=== PATIENT | male | born 1975 | race Hispanic/Latino ===

== ENCOUNTER 2018-02-21 15:38 | Emergency (ER) | payer OTHER ==
[~2018-02-21] VITALS: Ht 177.8 cm; Wt 104.8 kg
[2018-02-21] MEDS ORDERED: AMOXICILLIN/CLAVULANATE K 875 MG TAB PO STA (16:15)
[2018-02-21] MEDS ORDERED: TETANUS/DIPHTHERIA TOX ADULT 0.5 ML SYR IM ONE (16:15)
--- NOTE | 2018-02-21 17:00 | NUR ---
ERP at the bedside to place 2 reno in the wound for approximation, but allowing it to drain as necessary.
[2018-02-21] MEDS ORDERED: HYDROCODONE/APAP 5MG-325MG TAB PO ONE (17:15)
--- NOTE | 2018-02-21 17:38 | NUR ---
Pt to X-Ray for humeral radiographs
--- NOTE | 2018-02-21 18:05 | Diagnostic Imaging Report ---
Exam: Right humerus 2 views. Comparison: None. Findings: No evidence of fracture, malalignment, or soft tissue abnormality. Impression: No acute osseous abnormality Signed by: Dr. Luis Alberto Morales MD on 02/21/2018 6:02 PM
--- NOTE | 2018-02-21 18:50 | NUR ---
Pt is awaiting X-Ray results. Meds given as ordered. MD aware, Amoxicillin is not in the med room. states pt is ok to go and get his prescription filled and cancel the dose in the ER, if not able to locate.
== END 2018-02-21 20:05 | disposition home or self-care (01) ==
LOC: FSED 15:38
DX: S41.151A Open bite of right upper arm, initial encounter (principal); W54.0XXA Bitten by dog, initial encounter
CPT/HCPCS: 90714; 99283

== ENCOUNTER 2018-02-27 16:51 | Emergency (ER) | payer OTHER ==
--- OUTSIDE RECORDS SUMMARY | 2018-02-27 16:52 | XMS REPORT ---
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 Allergies, Adverse Reactions, Alerts This patient has no known allergies or adverse reactions. Medications This patient has no known medications. Results Test Description Test Time Test Comments Text Results Atomic Results Result Comments [facility] 2VIEW RT -HOPD 2018-02-21 18:01:00 [place] [id number] Patient Name: JEANETTE SIDDIQUI MR #: [id number] : 1975 Age/Sex: 42/M Req #: [id number] Adm Physician: Ordered by: DEANA HAYWOOD MD Report #: [id number] Location: [facility] Room/Bed: Procedure: [id number] HOPD/HUMERUS 2VIEW RT -HOPD Exam Date: 02/21/18 Exam Time: 1748 REPORT STATUS: Signed Exam: Right humerus 2 views. Comparison: None. Findings: No evidence of fracture, malalignment, or soft tissue abnormality. Impression: No acute osseous abnormality Signed by: Dr. Delfino Mary MD on 02/21/2018 6:02 PM Dictated By: DELFINO MARY MD 01 Transcribed By: FRANCY on 02/21/181801 COPY TO: DEANA HAYWOOD MD
--- NOTE | 2018-02-27 17:20 | NUR ---
DR WOODS TO SEE PT PRIOR TO TRIAGE, GLORIA ARE NOT READY TO BE REMOVED, PT TOLD TO RETURN IN 6 DAYS. HEELING WOUNDS NO SIGNS OR SYMTOMS OF INFECTION
== END 2018-02-27 17:22 | disposition left against medical advice (07) ==
LOC: FSED 16:51
DX: Z48.00 Encounter for change or removal of nonsurgical wound dressing (principal)

== ENCOUNTER 2018-03-03 18:21 | Emergency (ER) | payer OTHER ==
[~2018-03-03] VITALS: Ht 177.8 cm; Wt 104.8 kg
== END 2018-03-03 18:48 | disposition home or self-care (01) ==
LOC: FSED 18:21
DX: Z48.02 Encounter for removal of sutures (principal)

== ENCOUNTER → 2020-05-14 | Day surgery (SDC) | payer OTHER ==
[2020-05-09 08:52] LABS: BASOPHILS % 0.7 % (0.0-1.0); EOSINOPHILS # (AUTO) 0.2 (0.0-0.4); EOSINOPHILS % 2.9 % (0.0-6.0); HEMOGLOBIN 14.9 g/dL (14.0-18.0); LYMPHOCYTES % 32.9 % (18.0-39.1); MEAN CORPUSCULAR HEMOGLOBIN 29.4 pg (28-32); MEAN CORPUSCULAR HGB CONC 34.7 g/dL (31-35); MEAN CORPUSCULAR VOLUME 84.8 fL (81-99); MONOCYTES # (AUTO) 0.5 (0.2-0.8); MONOCYTES % 7.8 % (4.4-11.3); NEUTROPHILS # (AUTO) 3.3 (2.1-6.9); NEUTROPHILS % 55.5 % (38.7-80.0); PLATELET COUNT 299 x10e3/uL (140-360); RED BLOOD COUNT 5.07 x10e6/uL (4.3-5.7); RED CELL DISTRIBUTION WIDTH 12.3 % (11.7-14.4)
[2020-05-09 09:17] LABS: ALANINE AMINOTRANSFERASE 70 IU/L (0-55); ALBUMIN 4.2 g/dL (3.5-5.0); ALBUMIN/GLOBULIN RATIO 1.1 (0.8-2.0); ALKALINE PHOSPHATASE 51 IU/L (40-150); ANION GAP 14.4 mmol/L (8-16); BLOOD UREA NITROGEN 21 mg/dL (7-26); BUN/CREATININE RATIO 20 (6-25); CALCIUM 9.2 mg/dL (8.4-10.2); CARBON DIOXIDE 26 mmol/L (22-29); CHLORIDE 107 mmol/L (98-107); CREATININE, SERUM 1.07 mg/dL (0.72-1.25); EST GLOMERULAR FILTRATION RATE > 60 ML/MIN (60-); GLUCOSE 106 mg/dL (74-118); POTASSIUM 4.4 mmol/L (3.5-5.1); SODIUM 143 mmol/L (136-145)
[~2020-05-14] MED LIST: ACETAMINOPHEN 1000 MG/100 ML 100 ML IV ONE; ATENOLOL50 MG PO; BUPIVACAINE 0.25% 30ML SDV ONE; DEXAMETHASONE SOD PHOS INJ 4 MG/ML VIAL ONE; FENTANYL CITRATE/PF 100MCG/2 ML INJ ONE; GLYCOPYRROLATE INJ 0.2 MG/ML VIAL ONE; HYDROCODONE/APAP 7.5MG-325MG 1 EA TAB ONE; KETOROLAC TROMETHAMINE 30 MG/ML VIAL ONE; LIDOCAINE HCL 2% LOCAL INJ 5 ML SDV VIAL INJ ONE; NEOSTIGMINE 1 MG/ML 10ML VIAL ONE; ONDANSETRON HCL 4 MG ORAL DISINTEGRATING TAB ONE; ONDANSETRON HCL INJ 2MG/ML 2ML 2 MG/ML VIAL ONE; PANTOPRAZOLE SO20 MG PO; PROPOFOL IV EMULSION 10 MG/ML 20 ML VIAL ONE; ROCURONIUM BROMIDE 10 MG/ML 5ML VIAL IV ONE; SEVOFLURANE INHAL SOLN 250 ML PEN BTL ONE
[2020-05-14 12:25] VITALS: BP 139/80
== END | disposition home or self-care (01) ==
LOC: OR 05:59
PROVIDERS: ATTEND Surgery
DX: K80.10 Calculus of gallbladder with chronic cholecystitis without obstruction (principal); K42.9 Umbilical hernia without obstruction or gangrene; K82.8 Other specified diseases of gallbladder; I10 Essential (primary) hypertension; R00.1 Bradycardia, unspecified; K21.9 Gastro-esophageal reflux disease without esophagitis; N20.0 Calculus of kidney; R06.83 Snoring; Z01.810 Encounter for preprocedural cardiovascular examination; Z01.812 Encounter for preprocedural laboratory examination; Z20.822 Contact with and (suspected) exposure to COVID-19
CPT/HCPCS: 36415; 47562; 80053; 85025; 88304; 93005; C1766; J0131; J1100; J1885; J2001; J2405; J2704; J2710; J3010; Q0162; U0002

== ENCOUNTER 2020-06-28 03:00 | Emergency (ER) | payer OTHER ==
[~2020-06-28] VITALS: Ht 177.8 cm; Wt 107.0 kg
[~2020-06-28 03:00] MED LIST changes: -ACETAMINOPHEN 1000 MG/100 ML 100 ML IV ONE; -BUPIVACAINE 0.25% 30ML SDV ONE; -DEXAMETHASONE SOD PHOS INJ 4 MG/ML VIAL ONE; -FENTANYL CITRATE/PF 100MCG/2 ML INJ ONE; -GLYCOPYRROLATE INJ 0.2 MG/ML VIAL ONE; -HYDROCODONE/APAP 7.5MG-325MG 1 EA TAB ONE; -KETOROLAC TROMETHAMINE 30 MG/ML VIAL ONE; -LIDOCAINE HCL 2% LOCAL INJ 5 ML SDV VIAL INJ ONE; -NEOSTIGMINE 1 MG/ML 10ML VIAL ONE; -ONDANSETRON HCL 4 MG ORAL DISINTEGRATING TAB ONE; -ONDANSETRON HCL INJ 2MG/ML 2ML 2 MG/ML VIAL ONE; -PROPOFOL IV EMULSION 10 MG/ML 20 ML VIAL ONE; -ROCURONIUM BROMIDE 10 MG/ML 5ML VIAL IV ONE; -SEVOFLURANE INHAL SOLN 250 ML PEN BTL ONE
[2020-06-28] MEDS ORDERED: KETOROLAC TROMETHAMINE 30 MG/ML VIAL IV STA (03:16)
[2020-06-28] MEDS ORDERED: ONDANSETRON HCL INJ 2MG/ML 2ML 2 MG/ML VIAL IV STA (03:16)
[2020-06-28] MEDS ORDERED: ONDANSETRON HCL INJ 2MG/ML 2ML 2 MG/ML VIAL ONE (03:30)
[2020-06-28] MEDS ORDERED: MORPHINE SULFATE 5 MG/ML VIAL IV ONE (03:30)
[2020-06-28] MEDS ORDERED: MORPHINE SULFATE INJ 4 MG/ML INJ 1ML ONE (03:30)
[2020-06-28] MEDS ORDERED: KETOROLAC TROMETHAMINE 30 MG/ML VIAL ONE (03:30)
[2020-06-28] MEDS ORDERED: SODIUM CHLORIDE 0.9% 1000ML 1,000 ML ONE (03:31)
[2020-06-28 04:44] VITALS: BP 153/91
== END 2020-06-28 04:44 | disposition home or self-care (01) ==
LOC: FSED 03:18
DX: M54.5 Low back pain (principal); R10.11 Right upper quadrant pain; R11.2 Nausea with vomiting, unspecified; N20.0 Calculus of kidney; N21.0 Calculus in bladder; I10 Essential (primary) hypertension; K44.9 Diaphragmatic hernia without obstruction or gangrene; K76.0 Fatty (change of) liver, not elsewhere classified
CPT/HCPCS: 74176; 80048; 80076; 81003; 85025; 96374; 96375; 96376; 99284; J1885; J2270 ×2; J2405; J7030

== ENCOUNTER 2021-03-11 03:02 | Emergency (ER) | payer OTHER ==
[~2021-03-11] VITALS: Ht 177.8 cm; Wt 111.6 kg
[2021-03-11] MEDS ORDERED: OXYMETAZOLINE HCL 0.05% NAS 1 SPRAY BTL ONE ×2 (03:30→03:42)
[2021-03-11] MEDS ORDERED: DEXAMETHASONE SOD PHOS 10 MG/1 ML VIAL IM ONE (03:30)
[2021-03-11] MEDS ORDERED: DEXAMETHASONE SOD PHOS INJ 4 MG/ML SDV ONE (03:42)
[2021-03-11 03:46] VITALS: BP 149/98
== END 2021-03-11 03:46 | disposition home or self-care (01) ==
LOC: FSED 03:11
DX: R09.81 Nasal congestion (principal); J31.0 Chronic rhinitis; I10 Essential (primary) hypertension; K76.9 Liver disease, unspecified
CPT/HCPCS: 96372; 99282; J1100